=== PATIENT | female | born 1975 | race Caucasian/White ===

== ENCOUNTER 2024-01-03 08:21 | Day surgery (SDC) | payer BC ==
[~2024-01-03 08:21] MED LIST: Sodium Chloride 0.9% 10 ML Syringe FLUSH PRN; Sodium Chloride 0.9% 10 ML Syringe FLUSH SCH
[2024-01-03] MEDS: Lactated Ringers 1,000 ML IV SCH (08:40)
[2024-01-03 08:57] LABS: BASOPHILS ABSOLUTE AUTO 0.1 K/mm3 (0.0-0.2); BASOPHILS PERCENT AUTO 0.8 % (0.0-1.0); EOSINOPHILS ABSOLUTE AUTO 0.2 K/mm3 (0.0-0.4); EOSINOPHILS PERCENT AUTO 1.9 % (0.0-6.0); HEMATOCRIT 40.1 % (37.0-47.0); HEMOGLOBIN 13.2 gm/dl (12.0-16.0); IMMATURE GRAN ABSOLUTE AUTO 0.03 K/mm3 (0.00-0.05); IMMATURE GRAN PERCENT AUTO 0.4 % (0.0-0.4); LYMPHOCYTES ABSOLUTE AUTO 1.7 K/mm3 (1.0-4.8); LYMPHOCYTES PERCENT AUTO 20.3 % (24.0-44.0); MEAN CORPUSCULAR HEMOGLOBIN 28.1 pg (28.0-32.0); MEAN CORPUSCULAR HGB CONC 32.9 g/dl (32.0-36.0); MEAN CORPUSCULAR VOLUME 85.5 fl (83.0-99.0); MONOCYTES ABSOLUTE AUTO 0.7 K/mm3 (0.0-0.8); MONOCYTES PERCENT AUTO 8.1 % (0.0-8.0); NEUTROPHILS ABSOLUTE AUTO 5.9 K/mm3 (1.8-7.7); NEUTROPHILS PERCENT AUTO 68.5 % (41.0-71.0); PLATELET COUNT,PLT 297 K/mm3 (150-400); RED BLOOD CELL COUNT 4.69 M/mm3 (4.10-5.30); WHITE BLOOD CELL COUNT,WBC 8.57 K/mm3 (3.9-11.3)
[2024-01-03 09:10] LABS: CALCIUM 8.8 mg/dL (8.5-10.1); EST CRCL DRUG DOSING (CG) 64.41 mL/min
[2024-01-03] MEDS ORDERED: Rocuronium 50 MG/5 ML Vial ONE ×2 (09:40→10:43)
[2024-01-03] MEDS ORDERED: Metoclopramide 10 MG/2 ML SDV ONE (09:40)
[2024-01-03] MEDS ORDERED: dexmedeTOMIDine HCl 200 MCG/2 ML SDV ONE (09:40)
[2024-01-03] MEDS ORDERED: Ondansetron 4 MG/2 ML SDV ONE (09:40)
[2024-01-03] MEDS ORDERED: Lidocaine 2% 5 ML SDV ONE (09:40)
[2024-01-03] MEDS ORDERED: Ketorolac 30 MG/ML SDV ONE (09:40)
[2024-01-03] MEDS ORDERED: fentaNYL 100 MCG/2 ML SDV ONE (09:40)
[2024-01-03] MEDS ORDERED: Dexamethasone 4 MG/ML 5 ML MDV ONE (09:40)
[2024-01-03] MEDS ORDERED: Midazolam 1 MG/ML 2 ML SDV ONE (09:41)
[2024-01-03] MEDS ORDERED: Propofol 200 MG/20 ML SDV ONE ×2 (09:41)
[2024-01-03] MEDS ORDERED: ceFAZolin 2 GM Vial ONE (09:52)
[2024-01-03] MEDS ORDERED: Succinylcholine 200 MG/10 ML MDV ONE (10:00)
[2024-01-03] MEDS: Bupivacaine 0.25% 10 ML SDV ONE (10:21)
[2024-01-03] MEDS: EPINEPHrine 1 MG/ML SDV ONE (10:21)
[2024-01-03] MEDS: Bupivacaine 0.5% 30 ML SDV ONE (10:21)
[2024-01-03] MEDS ORDERED: ePHEDrine 50 MG/ML SDV ONE (10:28)
[2024-01-03] MEDS ORDERED: Ondansetron 4 MG/2 ML SDV IVPUSH PRN (10:39)
[2024-01-03] MEDS ORDERED: Lactated Ringers 1,000 ML ONE (10:56)
[2024-01-03] MEDS ORDERED: Neostigmine Methylsulfate 10 MG/10 ML MDV ONE ×2 (12:16)
[2024-01-03] MEDS: fentaNYL 100 MCG/2 ML SDV IVPUSH PRN (12:53)
[2024-01-03] MEDS: HYDROmorphone 0.5 MG/0.5 ML Syringe IVPUSH PRN (13:06)
[2024-01-03] MEDS: Acetaminophen/oxyCODONE 325-5 MG Tab PO PRN (14:20)
[2024-01-03 16:11] VITALS: BP 130/72; PULSE 84
== END 2024-01-03 15:51 | disposition home or self-care (01) ==
LOC: JD.SDS 08:21
PROVIDERS: ATTEND Obstetrics & Gynecology
DX: N80.03 Adenomyosis of the uterus (principal); N80.203 Endometriosis of bilateral fallopian tubes, unspecified depth; N72 Inflammatory disease of cervix uteri; N73.6 Female pelvic peritoneal adhesions (postinfective); F41.8 Other specified anxiety disorders; K21.9 Gastro-esophageal reflux disease without esophagitis; Z79.899 Other long term (current) drug therapy; Z88.2 Allergy status to sulfonamides
CPT/HCPCS: 36415; 58552; 80048; 81025; 85025; 86850; 86900; 86901; A9270; J0171; J0330; J0665; J0690; J1100; J1170; J1885; J2250; J2405; J2704; J2710; J2765; J3010; J3490; J7120; 00944

== ENCOUNTER 2024-05-06 10:55 | Emergency (ER) | payer BC ==
[2024-05-06] MEDS: Sodium Chloride 0.9% 1,000 ML IV ONE (11:50)
[2024-05-06 12:05] LABS: BASOPHILS ABSOLUTE AUTO 0.1 K/mm3 (0.0-0.2); BASOPHILS PERCENT AUTO 0.3 % (0.0-1.0); EOSINOPHILS PERCENT AUTO 0.1 % (0.0-6.0); HEMATOCRIT 36.1 % (37.0-47.0); HEMOGLOBIN 11.7 gm/dl (12.0-16.0); IMMATURE GRAN ABSOLUTE AUTO 0.07 K/mm3 (0.00-0.05); IMMATURE GRAN PERCENT AUTO 0.5 % (0.0-0.4); LYMPHOCYTES PERCENT AUTO 6.8 % (24.0-44.0); MEAN CORPUSCULAR HEMOGLOBIN 25.2 pg (28.0-32.0); MEAN CORPUSCULAR HGB CONC 32.4 g/dl (32.0-36.0); MEAN CORPUSCULAR VOLUME 77.6 fl (83.0-99.0); MEAN PLATELET VOLUME 10.6 fl (9.4-12.3); MONOCYTES ABSOLUTE AUTO 1.1 K/mm3 (0.0-0.8); MONOCYTES PERCENT AUTO 7.4 % (0.0-8.0); NEUTROPHILS ABSOLUTE AUTO 12.3 K/mm3 (1.8-7.7); NEUTROPHILS PERCENT AUTO 84.9 % (41.0-71.0); PLATELET COUNT,PLT 197 K/mm3 (150-400); RED BLOOD CELL COUNT 4.65 M/mm3 (4.10-5.30); WHITE BLOOD CELL COUNT,WBC 14.46 K/mm3 (3.9-11.3)
[2024-05-06 12:33] LABS: A/G RATIO 0.9 (1-2); ALBUMIN 3.5 g/dl (3.4-5.0); ANION GAP 17.7 (5-15); BILIRUBIN TOTAL 0.7 mg/dL (0.2-1.0); BUN/CREATININE RATIO 9.2 (14-18); C-REACTIVE PROTEIN 18.65 mg/dL (<0.30); CALCIUM 9.1 mg/dL (8.5-10.1); CREATININE 1.3 mg/dL (0.55-1.02); EST CRCL DRUG DOSING (CG) 49.54 mL/min; POTASSIUM,K 3.7 mEq/L (3.5-5.1); PROTEIN TOTAL,TP 7.4 g/dl (6.4-8.2)
[2024-05-06] MEDS ORDERED: Sodium Chloride 0.9% 10 ML Syringe FLUSH PRN (12:49)
[2024-05-06] MEDS: Ondansetron 4 MG/2 ML SDV IVPUSH ONE (12:50)
[2024-05-06 13:17] LABS: INR 1.08; PROTHROMBIN TIME 11.4 SECONDS (9.7-12.0)
[2024-05-06 16:01] VITALS: BP 141/80; PULSE 95
== END 2024-05-06 15:35 | disposition home or self-care (01) ==
LOC: JD.ED 10:55
DX: K52.9 Noninfective gastroenteritis and colitis, unspecified (principal); K21.9 Gastro-esophageal reflux disease without esophagitis; Z79.899 Other long term (current) drug therapy; Z88.8 Allergy status to other drugs, medicaments and biological substances; Z88.2 Allergy status to sulfonamides
CPT/HCPCS: 36415; 74176; 80053; 83605; 83690; 85025; 85610; 85730; 86140; 87040; 96361; 96374; 99284; J2405; J7030

== ENCOUNTER 2024-07-04 10:02 | Day surgery (SDC) | payer BC ==
[2024-07-04] MEDS: Lactated Ringers 1,000 ML IV SCH (10:30)
[2024-07-04] MEDS ORDERED: Midazolam 1 MG/ML 2 ML SDV ONE (11:06)
[2024-07-04] MEDS ORDERED: Lidocaine 1% 4 ML ONE (11:06)
[2024-07-04] MEDS ORDERED: Propofol 200 MG/20 ML SDV ONE ×2 (11:06→11:40)
[2024-07-04] MEDS ORDERED: Ondansetron 4 MG/2 ML SDV ONE (11:07)
[2024-07-04] MEDS ORDERED: Lidocaine 1% 2 ML ONE (11:31)
[2024-07-04] MEDS ORDERED: fentaNYL 100 MCG/2 ML SDV ONE (11:32)
[2024-07-04] MEDS ORDERED: Sodium Chloride 0.9% 10 ML Syringe FLUSH PRN (12:05)
[2024-07-04 14:03] VITALS: BP 111/71; PULSE 62
[2024-07-04] MEDS ORDERED: Sodium Chloride 0.9% 10 ML Syringe FLUSH SCH (21:00)
== END 2024-07-04 13:55 | disposition home or self-care (01) ==
LOC: JD.SDS 10:02
PROVIDERS: ATTEND Surgery
DX: D12.3 Benign neoplasm of transverse colon (principal); K63.5 Polyp of colon; K52.9 Noninfective gastroenteritis and colitis, unspecified; K29.50 Unspecified chronic gastritis without bleeding; K44.9 Diaphragmatic hernia without obstruction or gangrene; D50.9 Iron deficiency anemia, unspecified; K21.9 Gastro-esophageal reflux disease without esophagitis; I10 Essential (primary) hypertension; F41.8 Other specified anxiety disorders; Z79.899 Other long term (current) drug therapy; Z88.2 Allergy status to sulfonamides
CPT/HCPCS: 43239; 45380; J2250; J2405; J2704; J3010; J7120; 00813; J3490